=== PATIENT | female | born 1945 | race Caucasian/White ===

== ENCOUNTER → 2017-10-05 07:06 | Outpatient (CLI) | payer MEDICARE, OTHER, SELFPAY ==
[2017-10-05 10:48] LABS: ALB/GLOB Ratio 0.9 RATIO (0.9-2.4); AST(SGOT) 22 U/L (15-37); Alanine Aminotransfer ALT/SGPT 21 U/L (13-56); Albumin, Serum 3.7 g/dL (3.2-5.0); Alkaline Phosphatase 81 U/L (45-117); Anion Gap 10 (5-15); BUN 15 mg/dL (7-18); BUN/Creat Ratio 21.5 RATIO (10-20); Calcium,Total 8.9 mg/dL (8.5-10.1); Chloride 107 mmol/L (98-107); Cholesterol 207 mg/dL (200); EST Glomerular Filtration Rate 88 mL/min (>60); Est Glom Filt Rate - Afr Amer 106 mL/min (>60); Glucose 85 mg/dL (74-106); High Density Lipoprotein 89 mg/dL; Potassium 3.9 mmol/L (3.5-5.1); Protein, Total 7.7 g/dL (6.4-8.2); Sodium Level 143 mmol/L (136-145); Triglycerides 69 mg/dL; Very Low Density Lipoprotein 14 mg/dL (5-40)
== END ==
PROVIDERS: Family Provider Family Medicine; PCP Family Medicine; Visit Provider Family Medicine
DX: E78.5 Hyperlipidemia, unspecified (principal)
CPT/HCPCS: 36415; 80053; 80061

== ENCOUNTER → 2018-01-11 10:21 | Outpatient (CLI) | payer MEDICARE, OTHER, SELFPAY | PROVIDERS: Family Provider Family Medicine; PCP Family Medicine; Visit Provider Family Medicine | DX: R53.83 Other fatigue (principal); M79.602 Pain in left arm | CPT/HCPCS: 84484 ==

== ENCOUNTER → 2018-02-21 09:21 | Outpatient (CLI) | payer MEDICARE, OTHER, SELFPAY ==
--- NOTE | 2018-02-21 09:23 | BI_ITS ---
MAMMOGRAPHY - BILATERAL SCREENING REASON FOR EXAM: Female, 72 years old. Routine annual screening examination. PERTINENT HISTORY: Non-contributory. TECHNIQUE: Digital bilateral breast tee (3D mammographic acquisition) in the CC and MLO projections. 2-D mediolateral oblique (MLO) and craniocaudad (CC) views of both breasts were obtained. CAD: Full Field Digital Mammography with Computer Added Detection was performed. COMPARISON: Comparison is made with prior examination dated February 01, 2017 and January 27, 2016. FINDINGS: Breast Composition: The breasts are heterogeneously dense, which may obscure small masses. There are no dominant masses or suspicious calcifications. No other significant abnormalities are identified. There has been no significant change since the prior study. BI/SCREENING MAMM (CAD), BILAT IMPRESSION: Stable bilateral screening mammogram. Yearly follow-up mammogram recommended. (A) ASSESSMENT CATEGORY: BIRADS Category 1: Negative. A letter regarding these results will be sent to the patient by the facility within 30 days. Approximately 10% of breast cancers are not detected by mammography. A normal mammogram should not delay biopsy of a clinically suspicious abnormality. [id number] Electronically Signed: Emiliano Caal MD at 10:47 EDT Tel [phone], Service support ,
--- NOTE | 2018-02-21 09:31 | BD_ITS ---
STUDY: DUAL ENERGY X-RAY ABSORPTIOMETRY / DXA REASON FOR EXAM: Female, 72 years old. Early menopause. Loss of height. TECHNIQUE: Bone Mineral Density (BMD) measurements of lumbar spine and bilateral hips were obtained. COMPARISON: Comparison is made with prior study dated February 03, 2016. FINDINGS: Lumbar Spine (L1-L4): g/cm2 (0.883) / T-score (-2.5) / Z-score (-0.8) Findings are suggestive of osteopenia with a moderate fracture risk. Left Femur Total: g/cm2 (0.793) / T-score (-1.7) / Z-score (-0.1) Left Femoral Neck: g/cm2 (0.786) / T-score (-1.8) / Z-score (0.0) Right Femur Total: g/cm2 (0.771) / T-score (-1.9) / Z-score (-0.3) Right Femoral Neck: g/cm2 (0.815) / T-score (-1.6) / Z-score (0.2) The T-Scores on the most recent prior examination were: Lumbar Spine (L1-L4): There has been worsening of bone density since the previous examination. Left Femur Total: which represents a worsening of 6.3%. Right Femur Total: which represents a worsening of 0.3%. BD/Dexa Bone Density Study IMPRESSION: The patient is considered osteopenic as outlined below according to World Minh Organization (WHO) criteria with a moderate fracture risk. There has been worsening of bone density since the previous examination. Reference Information: The T-score is the number of standard deviations above or below the standard which is normal for young adults at their peak bone mineral density. The World Health Organization (WHO) interprets the T-scores as follows: Above -1 Normal bone density Between -1 and -2.5 Osteopenia Equal to / or below -2.5 Osteoporosis As a practical clinical guideline, osteopenia may be graded as follows: Mild -1 through -1.5 Moderate -1.6 through -2.0 Severe -2.1 through -2.4 The Z-score is the number of standard deviations above or below age-matched controls. A Z-score of less than -1.5 would be considered abnormal. References: 1. NIH Osteoporosis and Related Bone Diseases http://www.osteo.org 2. International Society for Clinical Densitometry http://www.iscd.org 3. National Osteoporosis Foundation http://www.nof.org Electronically Signed: Emiliano Caal MD at 14:45 EDT Tel [phone], Service support ,
== END ==
PROVIDERS: Family Provider Family Medicine; PCP Family Medicine; Visit Provider Obstetrics & Gynecology
DX: Z12.31 Encounter for screening mammogram for malignant neoplasm of breast (principal); Z78.0 Asymptomatic menopausal state
CPT/HCPCS: 77063; 77067; 77080

== ENCOUNTER → 2018-10-10 07:02 | Outpatient (CLI) | payer MEDICARE, OTHER, SELFPAY ==
[2018-02-21 08:56] VITALS: BMI 20.8
[2018-10-10 10:16] LABS: Absolute Lymphocyte Count 1.83 X10^3/ul (0.83-4.51); Absolute Neutrophil Count 2.5 X10^3/uL (2.0-7.7); Basophil# 0.03 X10^3/uL; Basophil% 0.6 % (0-1); Eosinophil# 0.16 X10^3/uL; Eosinophils% 3.1 % (0-5); Hematocrit 43.2 % (37-47); Hemoglobin 14.3 g/dl (12.0-15.0); Lymphocyte # 1.83 X10^3/ul (4.0); Mean Corp Hgb Conc 33.1 g/gl (32-36); Mean Corpuscular Hgb 32.3 pg (27.0-32.0); Mean Corpuscular Volume 97.5 fL (81-99); Mean Platelet Vol. 11.1 fl (6.2-12.0); Monocyte# 0.51 X10^3/uL; Neutrophil # 2.54 X10^3/uL (2.7-7.7); Neutrophil % 50.1 % (47-70); Platelet Count 286 K/mm3 (150-450); RBC Distribution Width SD 45.8 fl (35.1-43.9); Red Blood Count 4.43 M/mm3 (4.2-5.4); White Blood Count 5.1 K/mm3 (4.4-11.0)
[2018-10-10 10:24] LABS: POSITIVE COUNT NO; POSITIVE DIFFERENTIAL NO; POSITIVE MORPHOLOGY NO
[2018-10-10 10:59] LABS: ALB/GLOB Ratio 0.9 RATIO (0.9-2.4); AST(SGOT) 22 U/L (15-37); Alanine Aminotransfer ALT/SGPT 20 U/L (13-56); Albumin, Serum 3.8 g/dL (3.2-5.0); Alkaline Phosphatase 82 U/L (45-117); Anion Gap 6 (5-15); BUN 18 mg/dL (7-18); BUN/Creat Ratio 24.3 RATIO (10-20); Calcium,Total 8.4 mg/dL (8.5-10.1); Chloride 108 mmol/L (98-107); Creatinine, Serum 0.74 mg/dL (0.55-1.02); EST Glomerular Filtration Rate 82 mL/min (>60); Est Glom Filt Rate - Afr Amer 99 mL/min (>60); Globulin 4.2 g/dL (2.2-4.2); Glucose 89 mg/dL (74-106); Potassium 3.9 mmol/L (3.5-5.1); Sodium Level 140 mmol/L (136-145)
== END ==
PROVIDERS: Family Provider Family Medicine; PCP Family Medicine; Referring Provider Family Medicine; Visit Provider Family Medicine
DX: R73.9 Hyperglycemia, unspecified (principal)
CPT/HCPCS: 36415; 80053; 85025

== ENCOUNTER → 2019-02-27 10:24 | Outpatient (CLI) | payer MEDICARE, OTHER, SELFPAY ==
--- NOTE | 2019-02-27 10:27 | BI_ITS ---
MAMMOGRAPHY - BILATERAL SCREENING REASON FOR EXAM: Female, 73 years old. Routine annual screening examination. PERTINENT HISTORY: Non-contributory. TECHNIQUE: Digital bilateral breast juan (3D mammographic acquisition) in the CC and MLO projections. 2-D mediolateral oblique (MLO) and craniocaudad (CC) views of both breasts were obtained. CAD: Full Field Digital Mammography with Computer Added Detection was performed. COMPARISON: Comparison is made with prior study dated February 21, 2018 and February 01, 2017. FINDINGS: Breast Composition: The breasts are heterogeneously dense, which may obscure small masses. There are no dominant masses or suspicious calcifications. No other significant abnormalities are identified. There has been no significant change since the prior study. BI/SCREEN MAMM (CAD) W/JUAN BILAT IMPRESSION: Stable bilateral screening mammogram. Yearly follow-up mammogram recommended. (A) ASSESSMENT CATEGORY: BIRADS Category 1: Negative. A letter regarding these results will be sent to the patient by the facility within 30 days. Approximately 10% of breast cancers are not detected by mammography. A normal mammogram should not delay biopsy of a clinically suspicious abnormality. [id number] Electronically Signed: Emiliano Caal, at 11:12 EDT , Service support ,
== END ==
PROVIDERS: Family Provider Family Medicine; PCP Family Medicine; Referring Provider Obstetrics & Gynecology; Visit Provider Obstetrics & Gynecology
DX: Z12.31 Encounter for screening mammogram for malignant neoplasm of breast (principal)
CPT/HCPCS: 77063; 77067

== ENCOUNTER → 2019-12-19 07:01 | Outpatient (CLI) | payer MEDICARE, OTHER, SELFPAY ==
[2019-08-03 08:58] VITALS: BMI 20.8
[2019-12-19 10:20] LABS: Absolute Lymphocyte Count 2.21 X10^3/uL (0.83-4.51); Absolute Neutrophil Count 2.1 X10^3/uL (2.0-7.7); Basophil# 0.05 X10^3/uL; Eosinophil# 0.14 X10^3/uL; Eosinophils% 2.8 % (0-5); Hematocrit 42.1 % (37-47); Hemoglobin 13.4 g/dL (12.0-15.0); Lymphocyte # 2.21 X10^3/ul (4.0); Lymphocyte % 43.5 % (19-41); Mean Corp Hgb Conc 31.8 g/dL (32-36); Mean Corpuscular Hgb 33.2 pg (27.0-32.0); Mean Corpuscular Volume 104.2 fL (81-99); Mean Platelet Vol. 12.2 fl (6.2-12.0); Monocyte# 0.53 X10^3/uL; Monocyte% 10.4 % (0-10); NRBC Flagged by Analyzer 0 % (0-5); Neutrophil # 2.14 X10^3/uL (2.7-7.7); Neutrophil % 42.1 % (47-70); Platelet Count 265 K/mm3 (150-450); RBC Distribution Width CV 13.3 % (11.6-14.6); RBC Distribution Width SD 51.6 fl (35.1-43.9); Red Blood Count 4.04 M/mm3 (4.2-5.4); White Blood Count 5.1 K/mm3 (4.4-11.0)
[2019-12-19 10:52] LABS: AST(SGOT) 22 U/L (15-37); Alanine Aminotransfer ALT/SGPT 23 U/L (13-56); Albumin, Serum 3.8 g/dL (3.2-5.0); Alkaline Phosphatase 73 U/L (45-117); Anion Gap 4 (5-15); BUN 15 mg/dL (7-18); BUN/Creat Ratio 17.5 RATIO (10-20); Calcium,Total 9.1 mg/dL (8.5-10.1); Chloride 106 mmol/L (98-107); Cholesterol 215 mg/dL (200); Creatinine, Serum 0.86 mg/dL (0.55-1.02); EST Glomerular Filtration Rate 69 mL/min (>60); Est Glom Filt Rate - Afr Amer 84 mL/min (>60); Glucose 92 mg/dL (74-106); Hemoglobin A1c 5.5 % (3.8-5.6); High Density Lipoprotein 89 mg/dL; Potassium 3.8 mmol/L (3.5-5.1); Protein, Total 7.8 g/dL (6.4-8.2); Sodium Level 139 mmol/L (136-145); Triglycerides 70 mg/dL; Very Low Density Lipoprotein 14 mg/dL (5-40)
[2019-12-19 14:06] LABS: Vitamin D,25 Hydroxy 36.6 ng/mL
== END ==
PROVIDERS: PCP Family Medicine; Referring Provider Family Medicine; Visit Provider Family Medicine
DX: R73.9 Hyperglycemia, unspecified (principal); E55.9 Vitamin D deficiency, unspecified; E78.2 Mixed hyperlipidemia
CPT/HCPCS: 36415; 80053; 80061; 82306; 83036; 85025

== ENCOUNTER → 2020-03-04 10:45 | Outpatient (CLI) | payer MEDICARE, OTHER, SELFPAY ==
[2019-08-03 08:58] VITALS: BMI 20.8
--- NOTE | 2020-03-04 10:46 | BI_ITS ---
MAMMOGRAPHY - BILATERAL SCREENING REASON FOR EXAM: Female, 74 years old. Routine annual screening examination. PERTINENT HISTORY: BILAT SCREENING - NO FAM HX - NO PREV SURG''S TECHNIQUE: Digital bilateral breast juan (3D mammographic acquisition) in the CC and MLO projections. 2-D mediolateral oblique (MLO) and craniocaudad (CC) views of both breasts were obtained. CAD: Full Field Digital Mammography with Computer Added Detection was performed. COMPARISON: 02/27/2019 and 02/21/2018 FINDINGS: Breast Composition: The breasts are almost entirely fatty. There are no dominant masses or suspicious calcifications. No other significant abnormalities are identified. BI/SCREEN MAMM (CAD) W/JUAN BILAT IMPRESSION: Stable bilateral screening mammogram. Yearly follow-up mammogram recommended. (A) ASSESSMENT CATEGORY: BIRADS Category 2: Benign. A letter regarding these results will be sent to the patient by the facility within 30 days. Approximately 10% of breast cancers are not detected by mammography. A normal mammogram should not delay biopsy of a clinically suspicious abnormality. [id number] Electronically Signed: Jersey Skelton, at 15:27 EDT Tel , Service support ,
--- NOTE | 2020-03-04 10:50 | BD_ITS ---
STUDY: DUAL ENERGY X-RAY ABSORPTIOMETRY / DXA REASON FOR EXAM: Female, 74 years old. 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 COMPARISON: Comparison is made with prior examination dated 02/21/2018. FINDINGS: Lumbar Spine (L1-L4): g/cm2 (0.913) / T-score (-2.2) / Z-score (-0.5) Findings are suggestive of osteopenia with a moderate fracture risk. Left Femur Total: g/cm2 (0.796) / T-score (-1.7) / Z-score (0.0) Left Femoral Neck: g/cm2 (0.843) / T-score (-1.4) / Z-score (0.5) Right Femur Total: g/cm2 (0.73) / T-score (-1.8) / Z-score (-0.1) Right Femoral Neck: g/cm2 (0.793) / T-score (-1.8) / Z-score (0.1) The T-Scores on the most recent prior examination were: Lumbar Spine (L1-L4): There has been improvement of bone density since the previous examination. Left Femur Total: which represents an improvement of 0.4%. Right Femur Total: which represents an improvement of 1.6%. BD/Dexa Bone Density Study IMPRESSION: The patient is considered osteopenic as outlined below according to World Minh Organization (WHO) criteria with a moderate fracture risk. There has been improvement of bone density since the previous examination. Reference Information: The T-score is the number of standard deviations above or below the standard which is normal for young adults at their peak bone mineral density. The World Health Organization (WHO) interprets the T-scores as follows: Above -1 Normal bone density Between -1 and -2.5 Osteopenia Equal to / or below -2.5 Osteoporosis As a practical clinical guideline, osteopenia may be graded as follows: Mild -1 through -1.5 Moderate -1.6 through -2.0 Severe -2.1 through -2.4 The Z-score is the number of standard deviations above or below age-matched controls. A Z-score of less than -1.5 would be considered abnormal. References: 1. NIH Osteoporosis and Related Bone Diseases www osteo.org 2. International Society for Clinical Densitometry www iscd.org 3. National Osteoporosis Foundation www nof.org Electronically Signed: Emiliano Caal, at 9:07 EDT , Service support ,
== END ==
PROVIDERS: PCP Family Medicine; Referring Provider Obstetrics & Gynecology; Visit Provider Obstetrics & Gynecology
DX: Z12.31 Encounter for screening mammogram for malignant neoplasm of breast (principal); M81.0 Age-related osteoporosis without current pathological fracture
CPT/HCPCS: 77063; 77067; 77080

== ENCOUNTER → 2021-03-19 08:10 | Outpatient (CLI) | payer MEDICARE, OTHER, SELFPAY ==
[2020-03-17 09:17] VITALS: BMI 21.1
--- NOTE | 2021-03-19 08:14 | BI_ITS ---
MAMMOGRAPHY - BILATERAL SCREENING REASON FOR EXAM: Female, 76 years old. Routine annual screening examination. PERTINENT HISTORY: Non-contributory. TECHNIQUE: Digital bilateral breast juan (3D mammographic acquisition) in the CC and MLO projections. 2-D mediolateral oblique (MLO) and craniocaudad (CC) views of both breasts were obtained. CAD: Full Field Digital Mammography with Computer Added Detection was performed. COMPARISON: Comparison is made with prior study 03/04/2020 and 02/27/2019. FINDINGS: Breast Composition: The breasts are heterogeneously dense, which may obscure small masses. There are no dominant masses or suspicious calcifications. No other significant abnormalities are identified. There has been no significant change since the prior study. BI/SCRN MAMM (CAD)W/JUAN BILAT IMPRESSION: Stable bilateral screening mammogram. Yearly follow-up mammogram recommended. (A) ASSESSMENT CATEGORY: BIRADS Category 1: Negative. A letter regarding these results will be sent to the patient by the facility within 30 days. Approximately 10% of breast cancers are not detected by mammography. A normal mammogram should not delay biopsy of a clinically suspicious abnormality. [id number] Electronically Signed: Emiliano Caal MD at 9:14 EDT , Service support ,
== END ==
PROVIDERS: PCP Family Medicine; Referring Provider Obstetrics & Gynecology; Visit Provider Obstetrics & Gynecology
DX: Z12.31 Encounter for screening mammogram for malignant neoplasm of breast (principal)
CPT/HCPCS: 77063; 77067

== ENCOUNTER 2021-07-06 07:01 | Outpatient (CLI) | payer MEDICARE, OTHER, SELFPAY ==
[2021-07-06 10:08] LABS: Absolute Lymphocyte Count 1.81 X10^3/uL (0.83-4.51); Absolute Neutrophil Count 1.7 X10^3/uL (2.0-7.7); Basophil# 0.05 X10^3/uL; Basophil% 1.2 % (0-1); Eosinophil# 0.21 X10^3/uL; Eosinophils% 5.1 % (0-5); Hematocrit 44.2 % (37-47); Hemoglobin 14.6 g/dL (12.0-15.0); Lymphocyte # 1.81 X10^3/ul (0.83-4.51); Mean Corpuscular Hgb 32.7 pg (27.0-32.0); Mean Corpuscular Volume 99.1 fL (81-99); Mean Platelet Vol. 11.9 fl (6.2-12.0); Monocyte# 0.37 X10^3/uL; NRBC Flagged by Analyzer 0 % (0-5); Neutrophil # 1.66 X10^3/uL (2.7-7.7); Neutrophil % 40.5 % (47-70); Platelet Count 187 K/mm3 (150-450); RBC Distribution Width CV 12.5 % (11.6-14.6); Red Blood Count 4.46 M/mm3 (4.2-5.4); White Blood Count 4.1 K/mm3 (4.4-11.0)
[2021-07-06 10:20] LABS: Vitamin D,25 Hydroxy 31.8 ng/mL
[2021-07-06 10:29] LABS: ALB/GLOB Ratio 1.1 RATIO (0.9-2.4); AST(SGOT) 19 U/L (15-37); Alanine Aminotransfer ALT/SGPT 24 U/L (13-56); Alkaline Phosphatase 65 U/L (45-117); Anion Gap 4 (5-15); BUN 16 mg/dL (7-18); BUN/Creat Ratio 18.8 RATIO (10-20); Calcium,Total 9.1 mg/dL (8.5-10.1); Chloride 107 mmol/L (98-107); Cholesterol 266 mg/dL (200); Creatinine, Serum 0.85 mg/dL (0.55-1.02); EST Glomerular Filtration Rate 69 mL/min (>60); Est Glom Filt Rate - Afr Amer 83 mL/min (>60); Globulin 3.8 g/dL (2.2-4.2); Glucose 96 mg/dL (74-106); High Density Lipoprotein 108 mg/dL; Potassium 3.5 mmol/L (3.5-5.1); Protein, Total 7.8 g/dL (6.4-8.2); Sodium Level 138 mmol/L (136-145); Triglycerides 108 mg/dL; Very Low Density Lipoprotein 22 mg/dL (5-40)
== END 2021-07-06 23:59 | disposition home or self-care (01) ==
LOC: MTLAB 07:04
PROVIDERS: PCP Family Medicine; Referring Provider Family Medicine; Visit Provider Family Medicine
DX: Z00.00 Encounter for general adult medical examination without abnormal findings (principal); E78.2 Mixed hyperlipidemia; M85.80 Other specified disorders of bone density and structure, unspecified site
CPT/HCPCS: 36415; 80053; 80061; 82306; 85025

== ENCOUNTER 2021-07-13 14:28 | Outpatient (CLI) | payer MEDICARE, OTHER, SELFPAY ==
[2021-07-13 18:14] LABS: Absolute Lymphocyte Count 1.83 X10^3/uL (0.83-4.51); Absolute Neutrophil Count 4.5 X10^3/uL (2.0-7.7); Basophil# 0.05 X10^3/uL; Basophil% 0.7 % (0-1); Eosinophil# 0.13 X10^3/uL; Eosinophils% 1.8 % (0-5); Hematocrit 42.4 % (37-47); Hemoglobin 13.8 g/dL (12.0-15.0); Lymphocyte # 1.83 X10^3/ul (0.83-4.51); Mean Corp Hgb Conc 32.5 g/dL (32-36); Mean Corpuscular Hgb 32.9 pg (27.0-32.0); Mean Corpuscular Volume 101.2 fL (81-99); Mean Platelet Vol. 11.6 fl (6.2-12.0); Monocyte# 0.51 X10^3/uL; Monocyte% 7.3 % (0-10); NRBC Flagged by Analyzer 0 % (0-5); Neutrophil % 64.1 % (47-70); Platelet Count 198 K/mm3 (150-450); RBC Distribution Width CV 12.6 % (11.6-14.6); RBC Distribution Width SD 47.4 fl (35.1-43.9); Red Blood Count 4.19 M/mm3 (4.2-5.4)
[2021-07-14 09:11] LABS: Hepatitis C Antibody Non-Reactive (Nonreactive)
== END 2021-07-13 23:59 | disposition home or self-care (01) ==
LOC: MTLAB 14:30
PROVIDERS: PCP Family Medicine; Referring Provider Family Medicine; Visit Provider Family Medicine
DX: E80.6 Other disorders of bilirubin metabolism (principal); D72.819 Decreased white blood cell count, unspecified; Z11.59 Encounter for screening for other viral diseases
CPT/HCPCS: 36415; 82247; 85025; 86803

== ENCOUNTER 2021-11-26 11:30 | Outpatient (RCR) | payer MEDICARE, OTHER, SELFPAY ==
--- NOTE | 2021-09-10 13:03 | HP.OTEVAL_ITS ---
Patient's Visit Information JACKELINE BELTRE is a 76 year old F, referred to Occupational Therapy by TABITHA BOWMAN, with a diagnosis of L CMC arthroplasty. 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 Pt. reporting that she has had pain in her L hand/thumb for over a year. She had 2 cortisone shots, prior to having to have surgery. Spouse with pt. during evaluation. Pt. stating she would like to return to [facility] and resume exercise classes. Pt. stating the questions being asked during this evaluation are difficult to answer. - ADLs Dressing: Coat Eating: Cut food Comments: has not completed yet Kitchen: Chop with knife, Peel fruits & vegetables, Open jars, Lift gallon of milk Miscellaneous: Open doors/Including car door Comments: R hand dominant. Pt. stating she just uses her right hand for everything right now and that everything that requires 2 hands is difficult. Pt. reported she did not have difficulty with UB dressing, however at start of therapy session her assisted with doffing jacket and at end of tx he assisted with donning jacket over shoulders. - Pain Left Hand 0 Pain Intensity Range: 4 - ROM Shoulder: B WFL Elbow: B WFL Forearm: B WFL Wrist: R 60* flexion, ext 45* CMC: R 12* 25* ext MP: R 50* IP: R 80* MP: R 1-65*, 2-68*, 3-70* PIP: R 1- 81, 2- 88*, 3- 94*, 4-85* DIP: R 1-60*, 2-70* 3-58* 4-75* ROM Comments: L to be assessed at a later date. - Strength Shoulder: B WFL good Elbow: B WFL good Administration Physician: R-60# Strength Comments: L to be assessed at a later date. - Edema Other: from observation, L hand hand some swelling from sx. - Sensation Sensation Comments: Pt. reported she does not have deficits related to sensation in her hands. - Transfers Transfers: Pt. is independent with functional mobility. - Quick DASH-Disab of Arm,Shoulder& Hand Quick DASH Score: 45.0000 - Goals Goal:: Pt. will improve L guest relations officer strength to 50# to increase indep with meal prep tasks by dc. Goal:: Pt. to increase AROM to L digits 2-5 to make transverse palmar guest relations officer to increase indep with UB dressing by dc. Goal:: Pt. will verbalize understanding of wearing thumb spica orthosis by end of 1st tx. - Rehabilitation General Assessment: Pt. had surgery on 09-08-21 to her left thumb, CMC joint. She is not to use her left hand for ~ 3weeks and therefore has deficits in ADL, IADL, & leisure activities. She would benefit from skilled OT services 1-2x week for 6 weeks to increase AROM, and strength for functional performance. She will also benefit from orthotic fittings throughout. Therapy session directly supervised and doc. reviewed and approved by Myah Davis OTR/Randi,CHT. Rehabilitation Potential: Good - Anticipated Interventions Early Active Motion, A/AAROM/PROM, Strengthening, Edema Control, Scar Care, Wound Care, Modalities, Orthoses, Joint Protection/Energy Conservation, Education re Skin Care and Precautions, Education re Correct Donning Tech,Care&Wearing Sched Comp Garments, Other - Visit Plan Frequency: 2x /Week Duration: 6 Weeks General Plan: ice, scar mgt, orthotic fitting. 1-3 weeks orthotic fitting/comfort. 3 weeks post-op gentle PROM 3-4 times a day 10-15 reps. 4 weeks PROM to L CMC & MP joints. 4-6 times a day 10 min. thumb flex/ext, palmar abduction, circumduction, opposition. fit for short orthoses. 8 weeks gentle strengthening. 10-12 weeks resume normal activities. TEXT: Thank you for the opportunity to evaluate your patient. For Medicare and Medicare HMO plans, please review the plan of care and approve it. It will need to be FAXED BACK to us at [phone] for Medicare purposes. Please let me know if there are questions or concerns regarding this plan of care. Physician Signature: Date:
--- NOTE | 2021-11-26 11:54 | OTREVAL_ITS ---
TABITHA BOWMAN, It has been my pleasure to treat JACKELINE BELTRE over the last 8 visits for L CMC arthroplasty. Please see the progress note below for an update on the occupational therapy plan of care! Subjective: pt arrives states she is doing well. now 11 weeks and 2 days s/p from left CMC arthroplasty - pt reports she is performing her ADls and IADLs IND. Objective/Function: left wrist 60/60. left CMC 15. left MP 30. left IP 60. left registered diet technician strength 35#. left lateral pinch 2# noted MP hyper- ext with resistive pinch - therapist advised pt to continue with prevention of the hyper ext as able- Plan Plan: pt returns to DrJeff Goals - Goals Patient Goals: Regain Mobility, Regain Strength, Decrease Pain, Decrease Swelling/Stiffness, Resume Former Household Responsibilities (Cooking,Cleaning,Yard, etc.) Other: return to driving Goal:: Pt. will improve L registered diet technician strength to 50# to increase indep with meal prep tasks by dc. Goal:: Pt. to increase AROM to L digits 2-5 to make transverse palmar registered diet technician to increase indep with UB dressing by dc. Goal:: Pt. will verbalize understanding of wearing thumb spica orthosis by end of 1st tx. Goal:100% adherence to protocol: Yes Goal:Daily scar massage when approriate: Yes Goal:ROM equal to unaffected hand: Yes Goal:Loan Processor/Pinch strength at least 75% of unaffected hand: Yes Goal:No pain with affected hand use: Yes Goal:Full use of affected hand in daily activities including: Yes Other Goal: pt will demo understanding of using orthosis at all times. pt will demo understanding of skin care and precautions- Anticipated Interventions Anticipated Interventions: Early Active Motion, A/AAROM/PROM, Strengthening, Edema Control, Scar Care, Wound Care, Modalities, Orthoses, Joint Protection/Energy Conservation, Education re Skin Care and Precautions, Education re Correct Donning Tech,Care&Wearing Sched Comp Garments, Other Please do not hesitate to contact me at [phone] by phone or if you have questions or concerns regarding this new plan of care! Sincerely, Myah Davis, OTR/L, CHT
--- NOTE | 2021-12-03 09:08 | HP.OTDCSUM ---
It has been my pleasure to treat JACKELINE BELTRE under orders from TABITHA BOWMAN, for the diagnosis of L CMC arthroplasty for a total of 9 visit(s). Please see the following information for a summary of their discharge status. % Improvement: 95 Objective/Function: left wrist 60/60. left CMC 15. left MP 30. left IP 60. left environmental sustainability manager strength 35#. left lateral pinch 2# noted MP hyper- ext with resistive pinch - therapist advised pt to continue with prevention of the hyper ext as able- Patient Goals: Regain Mobility, Regain Strength, Decrease Pain, Decrease Swelling/Stiffness, Resume Former Household Responsibilities (Cooking,Cleaning,Yard, etc.) Other: return to driving Goal:: Pt. will improve L environmental sustainability manager strength to 50# to increase indep with meal prep tasks by dc. Goal:: Pt. to increase AROM to L digits 2-5 to make transverse palmar environmental sustainability manager to increase indep with UB dressing by dc. Goal:: Pt. will verbalize understanding of wearing thumb spica orthosis by end of 1st tx. Goal:100% adherence to protocol: Yes Goal:Daily scar massage when approriate: Yes Goal:ROM equal to unaffected hand: Yes Goal:Front End Web Developer/Pinch strength at least 75% of unaffected hand: Yes Goal:No pain with affected hand use: Yes Goal:Full use of affected hand in daily activities including: Yes Other Goal: pt will demo understanding of using orthosis at all times. pt will demo understanding of skin care and precautions- Plan: pt returns to Dr. Discharge Comments: pt was seen for 9 OT visits with OTR/L,CHT following a left CMC arthroplasty -. pt recovered well and has met OT goals and is d/c at this time-. left wrist 60/60. left CMC 15. left MP 30. left IP 60. left environmental sustainability manager strength 35#. left lateral pinch 2# noted MP hyper- ext with resistive pinch - therapist advised pt to continue with prevention of the hyper ext as able- If there are questions or concerns regarding this patient's occupational therapy, please fell free to call me at [phone]. Thank you for the referral of this patient. Sincerely, Myah Davis, OTR/L, CHT
== END 2021-11-26 19:00 | disposition home or self-care (01) ==
LOC: OT 11:30
PROVIDERS: PCP Family Medicine
DX: M18.12 Unilateral primary osteoarthritis of first carpometacarpal joint, left hand (principal)
CPT/HCPCS: 97110; 97140; 97165; 97166; 97530; 97760

== ENCOUNTER → 2022-03-23 | Outpatient (CLI) | payer MEDICARE, OTHER, SELFPAY ==
--- NOTE | 2022-03-23 09:20 | BI_ITS ---
MAMMOGRAPHY - BILATERAL SCREENING REASON FOR EXAM: Female, 77 years old. Routine annual screening examination. PERTINENT HISTORY: Non-contributory. TECHNIQUE: Digital bilateral breast juan (3D mammographic acquisition) in the CC and MLO projections. 2-D mediolateral oblique (MLO) and craniocaudad (CC) views of both breasts were obtained. CAD: Full Field Digital Mammography with Computer Added Detection was performed. COMPARISON: Comparison is made with prior study 03/19/2021 and 03/04/2020. FINDINGS: Breast Composition: The breasts are extremely dense, which lowers the sensitivity of mammography. There are no dominant masses or suspicious calcifications. No other significant abnormalities are identified. There has been no significant change since the prior study. BI/SCRN MAMM (CAD)W/JUAN BILAT IMPRESSION: Stable bilateral screening mammogram. Yearly follow-up mammogram recommended. (A) ASSESSMENT CATEGORY: BIRADS Category 1: Negative. A letter regarding these results will be sent to the patient by the facility within 30 days. Approximately 10% of breast cancers are not detected by mammography. A normal mammogram should not delay biopsy of a clinically suspicious abnormality. [id number] Electronically Signed: Emiliano Caal MD at 10:34 EDT ,
--- NOTE | 2022-03-23 09:25 | BD_ITS ---
STUDY: DUAL ENERGY X-RAY ABSORPTIOMETRY / DXA REASON FOR EXAM: Female, 77 years old. Osteopenia TECHNIQUE: Bone Mineral Density (BMD) measurements of lumbar spine and bilateral hips were obtained. COMPARISON: Comparison is made with prior study 03/04/2020. FINDINGS: Lumbar Spine (L1-L4): g/cm2 (0.779) / T-score (-2.4) / Z-score (0.0) Findings are suggestive of osteopenia with a high fracture risk. Left Femur Total: g/cm2 (0.740) / T-score (-1.7) / Z-score (0.2) Left Femoral Neck: g/cm2 (0.708) / T-score (-1.3) / Z-score (0.9) Right Femur Total: g/cm2 (0.729) / T-score (-1.7) / Z-score (0.1) Right Femoral Neck: g/cm2 (0.683) / T-score (-1.5) / Z-score (0.6) The T-Scores on the most recent prior examination were: Lumbar Spine (L1-L4): There has been worsening of bone density since the previous examination. Left Femur Total: which represents an improvement of 0.6%. Right Femur Total: which represents an improvement of 0.8%. BD/Dexa Bone Density Study IMPRESSION: The patient is considered osteopenic as outlined below according to World Minh Organization (WHO) criteria with a high fracture risk. There has been improvement of bone density since the previous examination. Reference Information: The T-score is the number of standard deviations above or below the standard which is normal for young adults at their peak bone mineral density. The World Health Organization (WHO) interprets the T-scores as follows: Above -1 Normal bone density Between -1 and -2.5 Osteopenia Equal to / or below -2.5 Osteoporosis As a practical clinical guideline, osteopenia may be graded as follows: Mild -1 through -1.5 Moderate -1.6 through -2.0 Severe -2.1 through -2.4 The Z-score is the number of standard deviations above or below age-matched controls. A Z-score of less than -1.5 would be considered abnormal. References: 1. NIH Osteoporosis and Related Bone Diseases www osteo.org 2. International Society for Clinical Densitometry www iscd.org 3. National Osteoporosis Foundation www nof.org Electronically Signed: Emiliano Caal MD at 14:04 EDT ,
== END | disposition home or self-care (01) ==
LOC: OPBD 09:18
PROVIDERS: PCP Family Medicine; Referring Provider Obstetrics & Gynecology; Visit Provider Obstetrics & Gynecology
DX: Z12.31 Encounter for screening mammogram for malignant neoplasm of breast (principal); M85.89 Other specified disorders of bone density and structure, multiple sites
CPT/HCPCS: 77063; 77067; 77080

== ENCOUNTER 2022-03-28 03:15 | Emergency (ER) | payer MEDICARE, OTHER, SELFPAY ==
[2022-03-28 03:17] VITALS: BP 168/77; PULSE 102; RESP 18; TEMP 36.6; O2SAT 99; BMI 20.7
--- NOTE | 2022-03-28 03:45 | EKG12_ITS ---
Test Reason : PALPS Blood Pressure : / mmHG Vent. Rate : 076 BPM Atrial Rate : 076 BPM P-R Int : 174 ms QRS Dur : 076 ms QT Int : 378 ms P-R-T Axes : 081 060 059 degrees QTc Int : 425 ms Sinus rhythm with marked sinus arrhythmia Otherwise normal ECG Confirmed by ACE CHAVEZ, GALINA ([id number]), science editor JAISON RHODES ([id number]) on 03/29/2022 9:29:08 AM Referred By: TL Confirmed By:GALINA BELLO MD
--- NOTE | 2022-03-28 03:46 | EDS_ITS ---
HPI History of Present Illness Chief Complaint: Palpitations Informant: patient and spouse/S.O. Narrative Narrative: Intermittent palpitations over 2 days. Reports this evening awaking her feeling abnormalities. Denies pounding in her chest but denies pain. Denies lightheaded symptoms. No history of dysrhythmias. Only history of osteopenia. She has seen cardiology Dr. Torres in the past however was cleared. This is for different issues she cannot recall at this time. No recent cough. No recent vomiting or diarrhea. Prior similar symptoms: No PFSH PFS Medical History (Updated 03/28/22 @ 04:[address] Jordan Beltre DO) Osteopenia Home Medications Glucosamine-Chondroitin 1 tab PO BID 03/29/13 [History Last Taken Unknown] calcium carbonate 600 mg-vitamin D3 20 mcg (800 unit) tablet 1 tab PO BIDCM 03/29/13 [History Last Taken Unknown] multivitamin with folic acid 400 mcg tablet 1 tab PO DAILY 03/29/13 [History Last Taken Unknown] cholecalciferol (vitamin D3) 50 mcg (2,000 unit) capsule 2,000 unit PO DAILY 03/08/19 [History Last Taken Unknown] clobetasol 0.05 % topical ointment 1 applic topical DAILY #45 grams 03/08/19 [Rx Last Taken Unknown] Allergy/AdvReac Type Severity Reaction Status Date / Time Penicillins [PCN] Allergy Intermediate Rash Verified 04/24/21 09:53 meperidine HCl [From Demerol] AdvReac Severe Low blood Verified 04/24/21 09:53 pressure Family History Mother Osteoporosis Sister Osteoporosis Surgical History Cataract (lens) fragments in eye following cataract surgery, left eye H/O: hysterectomy History of bunionectomy Social History Smoking Status: Never smoker alcohol intake: never substance use type: does not use caffeine: No what type of physical activity do you participate in: none and walking frequency: 5-6 times per week seatbelt use: always do you feel safe at home: Yes additional social history: Luciana ramires are retired Patient works at [employer] ROS ROS ED Constitutional Constitutional ED: Denies chills, fever(s) or sweats Eyes Eyes: Denies change in vision ENT ENT ED: Denies dysphagia or sore throat Cardiovascular Cardiovascular: Reports palpitations; Denies chest pain, leg edema or racing heartbeat Respiratory/Chest Respiratory/Chest: Denies cough, dyspnea or dyspnea on exertion Gastrointestinal Gastrointestinal: Denies abdominal pain, diarrhea, nausea or vomiting Genitourinary Genitourinary ED: Denies dysuria, hematuria or urinary frequency Musculoskeletal Musculoskeletal: Denies back pain, extremity pain or neck pain Integumentary Denies rash or wounds Neurologic Neurologic: Denies headache(s), paresthesias or weakness EXAM Physical Exam Const Vital Signs: 03/28/22 03:17 03/28/22 03:20 03/28/22 03:20 Temperature 97.8 F Temperature Source Oral Pulse Rate 102 H Respiratory Rate 18 Respiratory Effort Normal Non-Labored Normal Non-Labored Respiratory Pattern Normal Blood Pressure 168/77 H Blood Pressure Mean 107 Pulse Ox 99 Oxygen Delivery Method Room Air 03/28/22 04:22 03/28/22 05:00 Temperature Temperature Source Pulse Rate 72 72 Respiratory Rate 18 18 Respiratory Effort Respiratory Pattern Blood Pressure 135/55 H 130/59 H Blood Pressure Mean 81 82 Pulse Ox 98 98 Oxygen Delivery Method Room Air Room Air Positive well nourished and well developed General Appearance ED: well developed and NAD HEENT Reports moist mucous membranes normocephalic and atraumatic Eyes PERRL, EOMs intact bilaterally and conjunctivae normal General Eye ED: Yes normal appearance of both eyes Neck no lymphadenopathy and supple General: Negative for tenderness Chest Wall Chest: Negative for tenderness Resp normal respiratory effort and normal air movement Effort and Inspection: symmetric chest movement; Negative for respiratory distress Cardio regular rate and no murmurs Rate: other Other Details: Irregular rhythm Peripheral Pulses: pulses 2+ throughout GI normal to inspection, nondistended, normoactive bowel sounds and non-tender Palpation: Negative for guarding or rebound tenderness present Back/Spine no CVA tenderness and no thoracic nor lumbar tenderness Extremity normal to inspection General Extremety ED: Negative for edema or tenderness General Extremity: Negative for edema Neuro oriented x3 and no sensory deficits noted Sensorium / Orientation: awake and alert Skin no rashes or lesions noted and no wounds MDM MDM MDM Narrative Medical decision making narrative: Patient vital stable irregular rhythm auditory, however EKG notes marked sinus arrhythmia. Heart rate in the 70s. Laboratory studies checked normal electrolytes TSH slightly elevated free T4 levels obtained which we are normal. She has no lightheaded symptoms. New symptoms for last 2 days. 48-hour Holter monitor was placed through the ED for further monitoring. She is reassured. She will follow-up as an outpatient. Return precautions. All questions were answered. Lab Data Attestation: I reviewed the patient's lab results. Labs: Laboratory Results - last 24 hr 03/28/22 03/28/22 03/28/22 03:29 03:29 03:29 WBC 5.6 RBC 4.18 L Hgb 14.2 Hct 41.9 MCV 100.2 H MCH 34.0 H MCHC 33.9 RDW Std Deviation 47.2 H RDW Coeff of Je 12.8 Plt Count 242 MPV 10.9 Sodium 141 Potassium 3.7 Chloride 107 Carbon Dioxide 27.0 Anion Gap 7 BUN 18 Creatinine 0.88 Estim Creat Clear Calc 54.52 Est GFR (MDRD) Af Amer 81 Est GFR (MDRD) Non-Af 67 BUN/Creatinine Ratio 20.5 H Glucose 102 Calcium 9.1 Magnesium 2.2 TSH 5.38 H Free T4 1.06 EKG Initial EKG: Attestation: I personally reviewed and interpreted this EKG as follows: Comments: Sinus arrhythmia rate of 76, no ST or T wave changes QTC 425. Discharge Plan Triage Chief Complaint: Palpitations ED Provider: Jordan Beltre Dx/Rx/DC Orders Clinical Impression: Palpitation, Sinus arrhythmia seen on electrocardiogram Instructions: ED About Arrhythmias, ED Palpitations Prescriptions: No Action cholecalciferol (vitamin D3) 2,000 unit capsule 2,000 unit PO DAILY clobetasol 0.05 % ointment 1 applic TOPICAL DAILY Qty: 45 4RF Rx Instructions: Use nightly x2 weeks then twice weekly. multivitamin with folic acid 1 TABLET tablet 1 tab PO DAILY calcium carbonate-vitamin D3 1 TAB tablet 1 tab PO BIDCM Glucosamine-Chondroitin 1 tab PO BID Primary Care Provider: Gaston Ochoa Referrals: Kishan Mireles MD [Med Staff - Active Staff] - 1-2 Weeks Gaston Ochoa MD [Primary Care Provider] - 3-5 Days Activity Restrictions/Additional Instructions: Sinus arrhythmia seen on EKG. Maintain 48-hour Holter monitor. TSH slightly elevated at 5.38, however free T4 levels normal at 1.06. Follow-up as an outpatient. Return for any worsening symptoms. Disposition Disposition: Home, Self Care
[2022-03-28 03:53] LABS: Hematocrit 41.9 % (37-47); Hemoglobin 14.2 g/dL (12.0-15.0); Mean Corp Hgb Conc 33.9 g/dL (32-36); Mean Corpuscular Volume 100.2 fL (81-99); Mean Platelet Vol. 10.9 fl (6.2-12.0); Platelet Count 242 K/mm3 (150-450); RBC Distribution Width CV 12.8 % (11.6-14.6); RBC Distribution Width SD 47.2 fl (35.1-43.9); Red Blood Count 4.18 M/mm3 (4.2-5.4); White Blood Count 5.6 K/mm3 (4.4-11.0)
[2022-03-28 04:22] VITALS: BP 135/55; PULSE 72; RESP 18; O2SAT 98
[2022-03-28 04:25] LABS: Anion Gap 7 (5-15); BUN 18 mg/dL (7-18); BUN/Creat Ratio 20.5 RATIO (10-20); Calcium,Total 9.1 mg/dL (8.5-10.1); Chloride 107 mmol/L (98-107); Creatinine, Serum 0.88 mg/dL (0.55-1.02); EST Glomerular Filtration Rate 67 mL/min (>60); Est Glom Filt Rate - Afr Amer 81 mL/min (>60); Estimated Creatinine Clearance 54.52 ml/min; Glucose 102 mg/dL (74-106); Magnesium 2.2 mg/dL (1.6-2.6); Potassium 3.7 mmol/L (3.5-5.1); Sodium Level 141 mmol/L (136-145); Thyroid Stim Hormone (TSH) 5.38 uIU/mL (0.358-3.74)
[2022-03-28 05:00] VITALS: BP 130/59; PULSE 72; RESP 18; O2SAT 98
[2022-03-28 05:13] LABS: T4 Free Direct 1.06 ng/dL (0.76-1.46)
[2022-03-28 05:39] VITALS: BP 130/59; PULSE 72; RESP 18; O2SAT 98
== END 2022-03-28 05:40 | disposition home or self-care (01) ==
PROVIDERS: Emergency Provider Emergency Medicine; PCP Family Medicine; Visit Provider Emergency Medicine
DX: R00.2 Palpitations (principal); I49.8 Other specified cardiac arrhythmias
CPT/HCPCS: 80048; 83735; 84439; 84443; 85027; 93005; 93225; 93226; 99285; A4216

== ENCOUNTER → 2022-03-28 | Outpatient (CLI) | payer MEDICARE, OTHER, SELFPAY | END | disposition home or self-care (01) | LOC: CVS 04:45 | PROVIDERS: PCP Family Medicine; Visit Provider Emergency Medicine | DX: Z00.00 Encounter for general adult medical examination without abnormal findings (principal) ==

== ENCOUNTER → 2022-05-18 | Outpatient (CLI) | payer MEDICARE, OTHER, SELFPAY ==
--- NOTE | 2022-05-18 08:39 | STE_ITS ---
Reason For Study: Palpitations Stress Results Protocol: Gary Protocol Maximum Predicted HR: 144 bpm Target HR: 122 bpm % Maximum Predicted HR: 99 % DurationHeart Rate Stage (mm:ss) (bpm) BP Comment Baseline 73 110/70No Chest Pain Gary Protocol Stage I 3:00 114 122/68No Chest Pain Gary Protocol Stage II 3:00 129 130/72No Chest Pain Gary Protocol Stage III 3:00 142 146/64No Chest Pain Recovery 92 118/64No Chest Pain Stress Duration: 9:00 mm:ss Maximum Stress HR: 142 bpm METS: 10 Baseline Echocardiogram Findings Stress Echo Wall motion Data Resting WM Intermediate WM Stress WM ECHO/Stress Test Echo w/o Contrast Interpretation Summary Exercise stress echo. 77-year-old lady with a history of premature atrial complexes and palpitations. Resting EKG demonstrates sinus rhythm with a rate of 73 bpm normal intervals ar e noted resting blood pressure is 110/70 mmHg. The patient exercised according to the regular Gary p rotocol for total duration of 9 minutes. Patient completed stage III of the Gary protocol. The m aximum heart rate attained was 176 bpm which was 122% of max impacted heart rate the maximum work load was 10.1 metabolic equivalents. At rest there were no ST or T wave changes noted suggest ischemia and at peak exercise upsloping ST changes were noted with did not meet the criteria for isc hemia. Premature atrial complexes were noted there was 1 short run of an atrial tachycardia of a pproximately 6 beats no sustained runs of supraventricular tachyarrhythmia were noted and the test w as terminated due to the target heart rate being achieved. No chest pain was noted. The peak blood p ressure was 146/64 which was a normal blood pressure response to exercise with a rate-pressure pro duct of 20,700. Stress echocardiogram. The resting echocardiogram demonstrated an ejection fraction of approximately 5 5%. There was thickening of all cid during exercise with peaking of ejection fraction of ab out 70%. No new wall motion abnormalities were noted to suggest ischemia. No clinical angina was not ed. Conclusion: Exercise stress echo with no EKG criteria for ischemia at a high workload. Excellent functional aerobic capacity. No sustained atrial tachyarrhythmias noted. Normal resting and stress echocardiographic images. Ordering Physician: Kishan Mireles Referring Physician: Kishan Mireles Performed By: Elizabeth Segovia, DOMINIQUE, RVT
--- NOTE | 2022-05-18 08:39 | ECHOD_ITS ---
Reason For Study: PALPITATIONS, ARRHYTHMIA Procedure This was a 2D Doppler, Color Flow transthoracic echocardiogram. Exam performed in department. Left Ventricle Normal LV size. Left ventricular systolic function is normal. The estimated ejection fraction is 55 %. No regional wall motion abnormalities noted. Right Ventricle Normal RV size. Normal systolic function. Atria Normal left atrium. Normal right atrium. Mitral Valve Normal mitral valve. Mild (1+) mitral valve insufficiency. Tricuspid Valve Normal tricuspid valve. Aortic Valve Trisinus/trileaflet aortic valve. Pulmonic Valve Normal pulmonic valve. Great Vessels Normal aortic root. The pulmonary artery is normal size. Normal inferior vena cava. Pericardium/Pleural No pericardial effusion. MMode/2D Measurements & Calculations LVIDd: 4.7 cm IVSd: 0.94 cm Ao root diam: 2.9 cm LVIDs: 3.2 cm LVPWd: 0.91 cm RVDd: 2.4 cm FS: 31.4 % LAV(MOD-bp): 49.9 ml LVAd ap4: 25.3 cm2 LVAd ap2: 26.5 cm2 LAV(MOD-bp) Indexed: 28.5 ml/m2 LVLd ap4: 7.2 cm LVLd ap2: 7.9 cm LAV(MOD-sp2): 43.8 ml EDV(MOD-sp4): 74.5 ml EDV(MOD-sp2): 79.6 ml LAV(MOD-sp4): 46.9 ml EDV(sp4-el): 75.2 ml EDV(sp2-el): 75.8 ml LVAs ap4: 16.8 cm2 LVAs ap2: 15.8 cm2 LVLs ap4: 6.8 cm LVLs ap2: 6.1 cm ESV(MOD-sp4): 36.1 ml ESV(MOD-sp2): 35.5 ml ESV(sp4-el): 35.2 ml ESV(sp2-el): 34.7 ml EF(MOD-sp4): 51.5 % EF(MOD-sp2): 55.4 % EF(sp4-el): 53.1 % SV(MOD-sp4): 38.4 ml SV(MOD-sp2): 44.1 ml SV(sp4-el): 40.0 ml LA dimension(2D): 3.2 cm LA A4 area: 16.4 cm2 RA A4 area: 12.5 cm2 Time Measurements MV dec time: 0.17 sec Doppler Measurements & Calculations MV E max ollie: 94.0 cm/sec Lat Peak E' Ollie: 9.6 cm/sec Med Peak E' Ollie: 6.6 cm/sec MV A max ollie: 73.1 cm/sec E/E' lat: 9.8 E/E' med: 14.2 MV E/A: 1.3 MV dec slope: 565.0 cm/sec2 Ao V2 max: 110.3 cm/sec LV V1 max: 116.9 cm/sec Ao max P.9 mmHg LV V1 max P.6 mmHg Ao V2 mean: 83.7 cm/sec LV V1 mean P.0 mmHg Ao mean P.1 mmHg LV V1 mean: 80.5 cm/sec Ao V2 VTI: 25.4 cm LV V1 VTI: 22.3 cm AV (velocity ratio): 0.88 PA V2 max: 93.9 cm/sec ECHO/Echo Complete Interpretation Summary Normal LV size. Left ventricular systolic function is normal. The estimated ejection fraction is 55 %. Mild (1+) mitral valve insufficiency. Ordering Physician: Kishan Mireles Referring Physician: Gaston Ochoa Performed By: Elizabeth Segovia, SCARCS, RVT
== END | disposition home or self-care (01) ==
LOC: PSN 08:37
PROVIDERS: PCP Family Medicine; Visit Provider Internal Medicine Cardiovascular Disease
DX: I47.1 Supraventricular tachycardia (principal); R00.2 Palpitations; R79.89 Other specified abnormal findings of blood chemistry; R94.31 Abnormal electrocardiogram [ECG] [EKG]
CPT/HCPCS: 93017; 93225; 93226; 93306; 93350

== ENCOUNTER → 2022-05-27 | Outpatient (CLI) | payer MEDICARE, OTHER, SELFPAY | END | disposition home or self-care (01) | LOC: PSN 09:44 | PROVIDERS: PCP Family Medicine; Referring Provider Internal Medicine Cardiovascular Disease; Visit Provider Internal Medicine Cardiovascular Disease | DX: I47.1 Supraventricular tachycardia (principal) | CPT/HCPCS: 93225; 93226 ==

== ENCOUNTER → 2023-03-31 | Outpatient (CLI) | payer MEDICARE, OTHER, SELFPAY ==
--- NOTE | 2023-03-31 08:35 | BI_ITS ---
MAMMOGRAPHY - BILATERAL SCREENING REASON FOR EXAM: Female, 78 years old. Routine annual screening examination. PERTINENT HISTORY: Non-contributory. TECHNIQUE: Digital bilateral breast juan (3D mammographic acquisition) in the CC and MLO projections. 2-D mediolateral oblique (MLO) and craniocaudad (CC) views of both breasts were obtained. CAD: Full Field Digital Mammography with Computer Added Detection was performed. COMPARISON: Comparison is made with prior study dated March 23, 2022 and March 19, 2021. FINDINGS: Breast Composition: There are scattered areas of fibroglandular density. There are no dominant masses or suspicious calcifications. No other significant abnormalities are identified. There has been no significant change since the prior study. BI/SCRN MAMM (CAD)W/JUAN BILAT IMPRESSION: Stable bilateral screening mammogram. Yearly follow-up mammogram recommended. (A) ASSESSMENT CATEGORY: BIRADS Category 1: Negative. A letter regarding these results will be sent to the patient by the facility within 30 days. Approximately 10% of breast cancers are not detected by mammography. A normal mammogram should not delay biopsy of a clinically suspicious abnormality. [id number] Electronically Signed: Emiliano Caal MD at 10:03 EDT ,
== END | disposition home or self-care (01) ==
LOC: OPBI 08:34
PROVIDERS: PCP Family Medicine; Referring Provider Obstetrics & Gynecology; Visit Provider Obstetrics & Gynecology
DX: Z12.31 Encounter for screening mammogram for malignant neoplasm of breast (principal)
CPT/HCPCS: 77063; 77067

== ENCOUNTER → 2023-06-03 | Outpatient (CLI) | payer MEDICARE, OTHER, SELFPAY ==
[2023-06-03 10:47] LABS: Absolute Neutrophil Count 2.3 X10^3/uL (2.0-7.7); Basophil# 0.05 X10^3/uL; Eosinophil# 0.16 X10^3/uL; Eosinophils% 3.1 % (0-5); Hematocrit 42.2 % (37-47); Hemoglobin 13.5 g/dL (12.0-15.0); Lymphocyte % 40.5 % (19-41); Mean Corpuscular Hgb 32.4 pg (27.0-32.0); Mean Corpuscular Volume 101.2 fL (81-99); Mean Platelet Vol. 11.8 fl (6.2-12.0); Monocyte# 0.55 X10^3/uL; Monocyte% 10.6 % (0-10); NRBC Flagged by Analyzer 0 % (0-5); Neutrophil # 2.33 X10^3/uL (2.7-7.7); Neutrophil % 44.8 % (47-70); Platelet Count 209 K/mm3 (150-450); RBC Distribution Width CV 12.8 % (11.6-14.6); RBC Distribution Width SD 48.3 fl (35.1-43.9); Red Blood Count 4.17 M/mm3 (4.2-5.4); White Blood Count 5.2 K/mm3 (4.4-11.0)
[2023-06-03 11:10] LABS: Vitamin D,25 Hydroxy 43.6 ng/mL
[2023-06-03 11:30] LABS: AST(SGOT) 21 U/L (15-37); Alanine Aminotransfer ALT/SGPT 18 U/L (13-56); Albumin, Serum 3.8 g/dL (3.2-5.0); Alkaline Phosphatase 68 U/L (45-117); Anion Gap 6 (5-15); BUN 15 mg/dL (7-18); BUN/Creat Ratio 20.2 RATIO (10-20); Calcium,Total 8.8 mg/dL (8.5-10.1); Chloride 108 mmol/L (98-107); Cholesterol 227 mg/dL (200); Creatinine, Serum 0.74 mg/dL (0.55-1.02); EST Glomerular Filtration Rate 81 mL/min (>60); Est Glom Filt Rate - Afr Amer 98 mL/min (>60); Globulin 3.7 g/dL (2.2-4.2); Glucose 95 mg/dL (74-106); High Density Lipoprotein 95 mg/dL; Potassium 3.8 mmol/L (3.5-5.1); Protein, Total 7.5 g/dL (6.4-8.2); Sodium Level 141 mmol/L (136-145); Triglycerides 95 mg/dL; Very Low Density Lipoprotein 19 mg/dL (5-40)
== END | disposition home or self-care (01) ==
LOC: MTLAB 07:00
PROVIDERS: PCP Family Medicine; Referring Provider Family Medicine; Visit Provider Family Medicine
DX: F41.9 Anxiety disorder, unspecified (principal); Z98.890 Other specified postprocedural states; M85.80 Other specified disorders of bone density and structure, unspecified site; E55.9 Vitamin D deficiency, unspecified; E78.2 Mixed hyperlipidemia; Z86.79 Personal history of other diseases of the circulatory system
CPT/HCPCS: 36415; 80053; 80061; 82306; 84443; 85025

== ENCOUNTER → 2023-06-23 | Outpatient (CLI) | payer MEDICARE, OTHER, SELFPAY ==
[2023-06-23 13:15] LABS: Vitamin B12 565 pg/mL (211-911)
[2023-06-23 13:59] LABS: T4 Free Direct 0.92 ng/dL (0.76-1.46); T4 Total, Thyroxin 8.2 ug/dL (4.8-13.9); Thyroid Stim Hormone (TSH) 3.56 uIU/mL (0.358-3.74)
== END | disposition home or self-care (01) ==
LOC: MTLAB 10:39
PROVIDERS: PCP Family Medicine; Referring Provider Family Medicine; Visit Provider Family Medicine
DX: D75.89 Other specified diseases of blood and blood-forming organs (principal); E03.9 Hypothyroidism, unspecified
CPT/HCPCS: 36415; 82607; 82746; 84436; 84439; 84443

== ENCOUNTER → 2023-08-01 | Outpatient (CLI) | payer MEDICARE, OTHER, SELFPAY | END | disposition home or self-care (01) | LOC: PSN 07:10 | PROVIDERS: PCP Family Medicine; Referring Provider Internal Medicine Cardiovascular Disease; Visit Provider Internal Medicine Cardiovascular Disease | DX: I49.8 Other specified cardiac arrhythmias (principal); Z98.890 Other specified postprocedural states | CPT/HCPCS: 93225; 93226 ==

== ENCOUNTER → 2024-04-03 | Outpatient (CLI) | payer MEDICARE, OTHER, SELFPAY ==
--- NOTE | 2024-04-03 09:25 | BD_ITS ---
STUDY: DUAL ENERGY X-RAY ABSORPTIOMETRY / DXA REASON FOR EXAM: Female, 79 years old. Bone density screening TECHNIQUE: Bone Mineral Density (BMD) measurements of lumbar spine and bilateral hips were obtained. COMPARISON: Comparison is made with prior study dated March 23, 2022. FINDINGS: Lumbar Spine (L1-L4): g/cm2 (0.790) / T-score (-2.3) / Z-score (0.2) Findings are suggestive of osteopenia with a high fracture risk. Left Femur Total: g/cm2 (0.753) / T-score (-1.5) / Z-score (0.4) Left Femoral Neck: g/cm2 (0.696) / T-score (-1.4) / Z-score (0.8) Right Femur Total: g/cm2 (0.700) / T-score (-2.0) / Z-score (0.0) Right Femoral Neck: g/cm2 (0.655) / T-score (-1.7) / Z-score (0.5) The T-Scores on the most recent prior examination were: Lumbar Spine (L1-L4): There has been improvement of bone density since the previous examination. Left Femur Total: which represents an improvement of 1.8%. Right Femur Total: which represents a worsening of 4.1%. BD/Dexa Bone Density Study IMPRESSION: The patient is considered osteopenic as outlined below according to World Minh Organization (WHO) criteria with a high fracture risk. There has been improvement of bone density since the previous examination. Reference Information: The T-score is the number of standard deviations above or below the standard which is normal for young adults at their peak bone mineral density. The World Health Organization (WHO) interprets the T-scores as follows: Above -1 Normal bone density Between -1 and -2.5 Osteopenia Equal to / or below -2.5 Osteoporosis As a practical clinical guideline, osteopenia may be graded as follows: Mild -1 through -1.5 Moderate -1.6 through -2.0 Severe -2.1 through -2.4 The Z-score is the number of standard deviations above or below age-matched controls. A Z-score of less than -1.5 would be considered abnormal. References: 1. NIH Osteoporosis and Related Bone Diseases www osteo.org 2. International Society for Clinical Densitometry www iscd.org 3. National Osteoporosis Foundation www nof.org Electronically Signed: Emiliano Caal MD at 14:13 EST ,
--- NOTE | 2024-04-03 09:26 | BI_ITS ---
MAMMOGRAPHY - BILATERAL SCREENING REASON FOR EXAM: Female, 79 years old. Routine annual screening examination. PERTINENT HISTORY: Non-contributory. TECHNIQUE: Digital bilateral breast juan (3D mammographic acquisition) in the CC and MLO projections. 2-D mediolateral oblique (MLO) and craniocaudad (CC) views of both breasts were obtained. CAD: Full Field Digital Mammography with Computer Added Detection was performed. COMPARISON: Comparison is made with prior study dated March 31, 2023 and March 23, 2022. FINDINGS: Breast Composition: There are scattered areas of fibroglandular density. There are no dominant masses or suspicious calcifications. No other significant abnormalities are identified. There has been no significant change since the prior study. BI/SCRN MAMM (CAD)W/JUAN BILAT IMPRESSION: Stable bilateral screening mammogram. Yearly follow-up mammogram recommended. (A) ASSESSMENT CATEGORY: BIRADS Category 1: Negative. A letter regarding these results will be sent to the patient by the facility within 30 days. Approximately 10% of breast cancers are not detected by mammography. A normal mammogram should not delay biopsy of a clinically suspicious abnormality. [id number] Electronically Signed: Emiliano Caal MD at 10:57 EST ,
== END | disposition home or self-care (01) ==
LOC: OPBD 09:09
PROVIDERS: PCP Family Medicine; Referring Provider Obstetrics & Gynecology; Visit Provider Obstetrics & Gynecology
DX: Z12.31 Encounter for screening mammogram for malignant neoplasm of breast (principal); Z13.820 Encounter for screening for osteoporosis; M85.88 Other specified disorders of bone density and structure, other site
CPT/HCPCS: 77063; 77067; 77080

== ENCOUNTER → 2024-06-04 | Outpatient (CLI) | payer MEDICARE, OTHER, SELFPAY ==
[2024-06-04 07:10] LABS: Bacteria 0 SEEN /hpf (None Seen); Mucous, Urine 0 SEEN /hpf (<or=2+); Red Blood Cells-Urine 0 SEEN /hpf (0-5); White Blood Cells 0 SEEN /hpf (0-5)
[2024-06-04 10:36] LABS: Color, Urine Yellow (Yellow); Glucose, Dipstick Normal (Normal); Ketone-Dipstick Negative (Negative); Leukocyte Esterase-Dipstick Negative /ul (Negative); Nitrite-Dipstick Negative (Negative); Occult Blood-Urine Negative /ul (Negative); Protein-Dipstick Negative (Negative); Specific Gravity, Urine 1.015 (1.002-1.030); Urine Bilirubin Dipstick Negative (Negative); Urine Clarity Clear (Clear); Urine Urobilinogen Normal (Normal)
[2024-06-04 10:43] LABS: Squamous Epithelial Cells - UA 0-5 SEEN /hpf (5-10)
[2024-06-04 10:49] LABS: Absolute Lymphocyte Count 2.07 X10^3/uL (0.83-4.51); Absolute Neutrophil Count 2.8 X10^3/uL (2.0-7.7); Basophil# 0.04 X10^3/uL; Basophil% 0.7 % (0-1); Eosinophil# 0.26 X10^3/uL; Eosinophils% 4.4 % (0-5); Hematocrit 43.1 % (37-47); Hemoglobin 13.9 g/dL (12.0-15.0); Lymphocyte # 2.07 X10^3/ul (0.83-4.51); Lymphocyte % 34.7 % (19-41); Mean Corp Hgb Conc 32.3 g/dL (32-36); Mean Corpuscular Hgb 32.3 pg (27.0-32.0); Mean Platelet Vol. 11.5 fl (6.2-12.0); Monocyte# 0.76 X10^3/uL; Monocyte% 12.8 % (0-10); NRBC Flagged by Analyzer 0 % (0-5); Neutrophil # 2.82 X10^3/uL (2.7-7.7); Neutrophil % 47.2 % (47-70); Platelet Count 202 K/mm3 (150-450); RBC Distribution Width CV 12.7 % (11.6-14.6); RBC Distribution Width SD 47.4 fl (35.1-43.9); Red Blood Count 4.31 M/mm3 (4.2-5.4)
[2024-06-04 11:08] LABS: ALB/GLOB Ratio 0.9 RATIO (0.9-2.4); AST(SGOT) 19 U/L (15-37); Alanine Aminotransfer ALT/SGPT 22 U/L (13-56); Albumin, Serum 3.8 g/dL (3.2-5.0); Alkaline Phosphatase 73 U/L (45-117); Anion Gap 4 (5-15); BUN 12 mg/dL (7-18); BUN/Creat Ratio 15.9 RATIO (10-20); CPK Total, Creatine Kinase 53 U/L (26-192); Calcium,Total 9.3 mg/dL (8.5-10.1); Chloride 106 mmol/L (98-107); Cholesterol 213 mg/dL (200); Creatinine, Serum 0.76 mg/dL (0.55-1.02); EST Glomerular Filtration Rate 79 mL/min (>60); Est Glom Filt Rate - Afr Amer 95 mL/min (>60); Globulin 4.1 g/dL (2.2-4.2); Glucose 99 mg/dL (74-106); High Density Lipoprotein 101 mg/dL; Potassium 3.7 mmol/L (3.5-5.1); Protein, Total 7.9 g/dL (6.4-8.2); Sodium Level 138 mmol/L (136-145); Triglycerides 86 mg/dL; Very Low Density Lipoprotein 17 mg/dL (5-40)
[2024-06-05 12:07] LABS: Anti-Nuclear Antibody Test Positive (.); Anti-dsDNA Ab 1 IU/mL (0-9)
[2024-06-05 16:08] LABS: Aldolase 3.1 U/L (3.3-10.3)
== END | disposition home or self-care (01) ==
LOC: MTLAB 07:03
PROVIDERS: PCP Family Medicine; Referring Provider Family Medicine; Visit Provider Family Medicine
DX: E78.2 Mixed hyperlipidemia (principal); F41.9 Anxiety disorder, unspecified; L30.8 Other specified dermatitis
CPT/HCPCS: 36415; 80053; 80061; 81001; 82085; 82550; 85025; 86038; 86225

== ENCOUNTER 2025-03-18 08:38 | Emergency (ER) | payer MEDICARE, OTHER, SELFPAY ==
[2025-03-18 08:40] VITALS: BP 165/71; PULSE 86; RESP 16; TEMP 36.8; O2SAT 100; BMI 19.8
--- NOTE | 2025-03-18 09:35 | EX.ED.DYSGE1 ---
HPI History of Present Illness Chief Complaint: Dizziness Informant: patient and spouse/S.O. Narrative Narrative: Patient is a 80-year-old female with a history of SVT status post ablation 2.5 years ago, presenting with acute onset vertigo that started this AM an hour or 2 ago upon getting up. Patient is accompanied by her who is supplementing history. - Reports sudden onset of vertigo this morning, described as a sensation of the room spinning. - Vertigo is intermittent and triggered by positional changes, such as walking or using the bathroom. - Each episode lasts for minutes. - Denies current vertigo while lying down. - Denies associated nausea, tinnitus, otalgia, visual changes, dysarthria, or aphasia. - Denies paresthesia or unilateral weakness. - Denies recent head trauma, otalgia, or URI symptoms. - Denies headaches. - Denies use of anticoagulants. - Able to ambulate with caution during episodes. - Engages in physical exercise 5 days a week. - No recent changes in hearing. - No recent prescription medication changes. [facility] Medical History Nonsustained supraventricular tachycardia Multifocal atrial tachycardia Macrocytosis Elevated TSH Palpitations Lumbago Basal cell carcinoma of ear Backache, unspecified Osteopenia Home Medications ?Medication ?Instructions ?Recorded ?Last Taken ?Type calcium 600 mg (as 1 tab PO BIDCM 03/29/13 Unknown History carbonate)-vitamin D3 20 mcg (800 unit) tablet glucosamine sulfate 750 mg tablet 1,500 mg PO DAILY 04/07/22 Unknown History multivitamin 1 tab PO DAILY 04/07/22 Unknown History cholecalciferol (vitamin D3) 25 25 mcg PO BID 06/25/22 Unknown History mcg (1,000 unit) capsule sertraline 25 mg tablet (Zoloft) 25 mg PO DAILY 06/25/22 Unknown History clobetasol 0.05 % topical cream 1 applic topical BID 03/18/25 Unknown History Allergy/AdvReac Type Severity Reaction Status Date / Time ampicillin Allergy Intermediate Hives Verified 03/18/25 08:40 Penicillins (PCN) Allergy Intermediate Rash Verified 03/18/25 08:40 meperidine HCl (From Demerol) AdvReac Severe Low blood Verified 03/18/25 08:40 pressure metoprolol AdvReac Intermediate Dizziness, Verified 03/18/25 08:40 no help with palps Family History Mother Osteoporosis Hypertension Sister Osteoporosis Multiple sclerosis Father Cancer prostate & kidney Grandmother Heart disease Grandfather Heart disease Surgical History History of cardiac radiofrequency ablation (10/15/22) History of external ear surgery Cataract (lens) fragments in eye following cataract surgery, left eye History of bunionectomy H/O: hysterectomy (1990) Social History household members: spouse Smoking Status: Never smoker alcohol intake: current alcohol intake frequency: a few times a week Alcohol type: wine substance use type: does not use caffeine: No what type of physical activity do you participate in: none and walking frequency: 5-6 times per week seatbelt use: always do you feel safe at home: Yes additional social history: Luciana ramires are retired Patient works at [employer] ROS ROS ED Constitutional Constitutional ED: Denies chills or fever(s) Eyes Eyes: Denies change in vision or diplopia ENT ENT ED: Reports disequillibrium and dizziness; Denies ear pain, hearing loss, rhinorrhea, sore throat or tinnitus Cardiovascular Cardiovascular: Denies chest pain or palpitations Respiratory/Chest Respiratory/Chest: Denies cough or dyspnea Gastrointestinal Gastrointestinal: Denies abdominal pain, diarrhea, nausea or vomiting Genitourinary Genitourinary ED: Denies dysuria or hematuria Musculoskeletal Musculoskeletal: Denies back pain or neck pain Integumentary Denies abscess or rash Neurologic Neurologic: Denies headache(s), paresthesias or weakness Psychiatric Psychiatric: Denies anxiety or suicidal thoughts EXAM Physical Exam Const Vital Signs: 03/18/25 08:40 Temperature 98.2 F Temperature Source Oral Pulse Rate 86 Respiratory Rate 16 Blood Pressure 165/71 H Blood Pressure Mean 102 Pulse Ox 100 Oxygen Delivery Method Room Air Positive well nourished and well developed General Appearance ED: well developed and NAD HEENT Reports moist mucous membranes HEENT Narrative: Left TM normal, cerumen on the right, occluding visualization of the TM. Otherwise EAC normal and no pain with manipulation of the pinna or the tragus. normocephalic and atraumatic Eyes PERRL and EOMs intact bilaterally Eyes Narrative: No pathologic nystagmus and no direction changing nystagmus. While vertiginous, jolt test is abnormal with catch-up saccade. Neck full ROM and supple Resp normal respiratory effort and clear to auscultation bilaterally Cardio regular rate, regular rhythm and no murmurs Rate: Negative for tachycardic GI non-tender and non-distended Auscultation: normoactive bowel sounds Palpation: soft Back/Spine no CVA tenderness General Back: other FROM Extremity normal to inspection General Extremety ED: Negative for edema, pulses abnormal or tenderness General Extremity: Negative for edema or pulses abnormal Neuro oriented x3, CN's II-XII intact bilaterally and no sensory deficits noted Neuro Narrative: Normal fobado-[id number]-tvaw and evvb-mb-wbzu bilaterally. Normal speech no dysarthria or aphasia. NIHSS 0. Positive F[place]-Hallpike to the right, asymptomatic with maneuver to the left. Sensorium / Orientation: awake and alert Motor Exam: strength 5/5 throughout Skin no rashes or lesions noted and no wounds MDM MDM MDM Narrative Medical decision making narrative: Assessment: The patient is a 80-year-old female with PMH of SVT status post ablation two and a half years ago, currently on monthly medication, presenting for acute intermittent positional vertigo that began this morning. Episodes are brief, triggered by position changes, and associated with room-spinning sensation without nausea, tinnitus, focal neurologic deficits, or headache. Positive Nancy-Hallpike to the right, negative to the left; neurologic exam otherwise normal with no direction-changing nystagmus, dysarthria, dysmetria, or aphasia. Normal blood pressure in the 130s. Findings are most consistent with benign paroxysmal positional vertigo (BPPV) of the right ear; stroke or central causes are unlikely given normal neuro exam and positional trigger. Plan: - Performed Suzanne maneuver (started right, completed left) in ED - Offered ondansetron; patient declined due to absence of nausea - Provided discharge instructions regarding home Suzanne exercises and red-flag return precautions - Advised outpatient ENT follow-up as needed - Discharged home in stable condition Reevaluations: - Symptomatic during Suzanne maneuver; dizziness subsided on completion; BP remained in 130s; neurologic status unchanged and stable for discharge Diagnoses: Benign paroxysmal positional vertigo of right ear Rhythm Strip Rhythm Strip: Sinus Rhythm Rate: 85 Ectopy: None Discharge Plan Triage Chief Complaint: Dizziness ED Provider: Taras Mas Dx/Rx/DC Orders Clinical Impression: Benign paroxysmal positional vertigo of right ear Instructions: BPPV Prescriptions: No Action cholecalciferol (vitamin D3) 25 mcg (1,000 unit) capsule 25 mcg PO BID glucosamine sulfate 750 mg tablet 1,500 mg PO DAILY Rx Instructions: administer with a meal multivitamin Tablet 1 tab PO DAILY sertraline [Zoloft] 25 mg tablet 25 mg PO DAILY calcium carbonate-vitamin D3 1 TAB tablet 1 tab PO BIDCM clobetasol 0.05 % cream 1 applic topical BID Primary Care Provider: Gaston Ochoa Referrals: Bo Vasquez MD [Med Staff - Active Staff, Ear Nose Throat (ENT)] - As Needed Activity Restrictions/Additional Instructions: - Diagnosis: benign positional vertigo (BPPV) caused by crystals in your inner ear; this type of dizziness is uncomfortable but not typically dangerous. - Treatment: Suzanne maneuver was performed to attempt repositioning of the crystals. - You did not require any new medications or imaging today. - If your dizziness returns or does not improve, please schedule a follow-up appointment with an Ear, Nose & Throat (ENT) specialist. - Change positions slowly to attempt to minimize symptoms. Print Language: Barbadian Disposition Disposition: Home, Self Care
[2025-03-18 09:53] VITALS: BP 149/60; PULSE 68; RESP 16; TEMP 36.7; O2SAT 100
== END 2025-03-18 09:53 | disposition home or self-care (01) ==
PROVIDERS: Emergency Provider Emergency Medicine; PCP Family Medicine; Visit Provider Emergency Medicine
DX: H81.11 Benign paroxysmal vertigo, right ear (principal); R29.700 NIHSS score 0
CPT/HCPCS: 99283

== ENCOUNTER → 2025-04-04 | Outpatient (CLI) | payer MEDICARE, OTHER, SELFPAY ==
--- NOTE | 2025-04-04 08:15 | BI_ITS ---
EXAM: SCRN MAMM (CAD)W/JUAN BILAT DATE: 04/04/2025 CLINICAL HISTORY: F, Age 80 y/o , SCREEN FOR BREAST CANCER No family history. TECHNIQUE: Procedure Code: [id number] Modality: MG Procedure: SCRN MAMM (CAD)W/JUAN BILAT COMPARISON: Prior exam(s) dated April 03, 2024.. FINDINGS: TISSUE DENSITY: The breasts are heterogeneously dense, which may obscure small masses. Bilateral Breast Mammographic Findings: No significant masses, calcifications or other abnormalities are identified. Stable bilateral secretory calcification. No suspicious masses, areas of developing architectural distortion, or suspicious calcifications. There has been no significant interval change. BI/SCRN MAMM (CAD)W/JUAN BILAT IMPRESSION: Stable bilateral screening mammogram. OVERALL FINAL ASSESSMENT BI-RADS 2: BENIGN RECOMMENDATION: Routine annual follow-up in 1 Year Additional Recommendation none A letter with findings and recommendations will be mailed to the patient. Reading Location: [facility]
== END | disposition home or self-care (01) ==
LOC: OPBI 07:52
PROVIDERS: PCP Family Medicine; Referring Provider Obstetrics & Gynecology; Visit Provider Obstetrics & Gynecology
DX: Z12.31 Encounter for screening mammogram for malignant neoplasm of breast (principal)
CPT/HCPCS: 77063; 77067

== ENCOUNTER → 2025-05-17 | Outpatient (CLI) | payer MEDICARE, OTHER, SELFPAY | END | disposition home or self-care (01) | LOC: LAB.FUTURE 16:49 | PROVIDERS: PCP Family Medicine; Visit Provider Family Medicine | DX: M85.80 Other specified disorders of bone density and structure, unspecified site (principal); I48.92 Unspecified atrial flutter; E55.9 Vitamin D deficiency, unspecified; E78.2 Mixed hyperlipidemia ==

== ENCOUNTER → 2025-05-28 | Outpatient (CLI) | payer MEDICARE, OTHER, SELFPAY ==
[2025-05-28 10:37] LABS: Hematocrit 41.4 % (37-47); Hemoglobin 13.8 g/dL (12.0-15.0); Immature Granulocytes Count 0.010 X10^3/uL (0.0-0.0); Mean Corp Hgb Conc 33.3 g/dL (32-36); Mean Corpuscular Volume 98.1 fL (81-99); Mean Platelet Vol. 11.1 fl (6.2-12.0); NRBC Flagged by Analyzer 0 % (0-5); Platelet Count 213 K/mm3 (150-450); RBC Distribution Width CV 13.1 % (11.6-14.6); RBC Distribution Width SD 47.0 fl (35.1-43.9); Red Blood Count 4.22 M/mm3 (4.2-5.4); White Blood Count 5.6 K/mm3 (4.4-11.0)
[2025-05-28 11:15] LABS: AST(SGOT) 24 U/L (<=31); Alanine Aminotransfer ALT/SGPT 15 U/L (<=34); Albumin, Serum 4.3 g/dL (3.4-4.8); Alkaline Phosphatase 70 U/L (35-104); Anion Gap 11 (7-18); BUN 14 mg/dL (4-19); BUN/Creat Ratio 18.8 RATIO (10-20); Calcium,Total 9.6 mg/dL (7.6-11.0); Carbon Dioxide 25.5 mmol/L (20.0-29.0); Chloride 105 mmol/L (96-106); Cholesterol 231 mg/dL (<=200); Globulin 3.3 g/dL (2.2-4.2); Glucose 95 mg/dL (70-99); Low Density Lipoprotein Calc. 121 mg/dL; Potassium 4.1 mmol/L (3.5-5.1); Triglycerides 116 mg/dL; Very Low Density Lipoprotein 23 mg/dL (5-40); Vitamin D,25 Hydroxy 37.6 ng/mL (30-100); cholesterol:hdl ratio screen 2.58
== END | disposition home or self-care (01) ==
LOC: MTLAB 07:07
PROVIDERS: PCP Family Medicine; Referring Provider Family Medicine; Visit Provider Family Medicine
DX: E55.9 Vitamin D deficiency, unspecified (principal); I48.92 Unspecified atrial flutter; M85.80 Other specified disorders of bone density and structure, unspecified site; E78.2 Mixed hyperlipidemia
CPT/HCPCS: 36415; 80053; 80061; 82306; 84443; 85025